=== PATIENT | female | born 2000 | race Caucasian/White ===

== ENCOUNTER 2024-02-14 11:15 | Emergency (ER) | payer BC, SELFPAY ==
[2024-02-14 11:24] VITALS: BP 123/67; PULSE 73; RESP 16; TEMP 36.8; O2SAT 100
--- NOTE | 2024-02-14 11:46 | ED.GENADULT ---
HPI - General Adult General Chief complaint: Upper Respiratory Infection Stated complaint: sore tongue/throat Time Seen by Provider: 02/14/24 11:32 Source: patient and RN notes reviewed Mode of arrival: ambulatory Limitations: no limitations History of Present Illness HPI narrative: Patient presents today complaining of the some painful bumps underneath her tongue and irritation to the lower gumline x2 weeks. Symptoms have been worsening since onset. Today, she developed a sore throat. Currently rates her pain 2/10 and has taken no over the counter treatment prior to arrival. States she wants to make sure she is not showing any signs of salivary gland cancer. Related Data Home Medications Medication Instructions Recorded Confirmed No Home Medications 02/14/24 02/14/24 Allergies Allergy/AdvReac Type Severity Reaction Status Date / Time No Known Allergies Allergy Verified 02/14/24 11:25 Review of Systems Review of Systems: CONSTITUTIONAL: Denies body aches, fever, chills, or sweats. EYES: Denies visual changes, redness, or discharge. ENT: Denies rhinorrhea, congestion, or otalgia.+ sore throat, tongue sores, gum inflammation CARDIOVASCULAR: Denies chest pain, palpitations, or edema. RESPIRATORY: Denies cough or dyspnea. GASTROINTESTINAL: Denies abdominal pain, nausea, vomiting, or diarrhea. GENITOURINARY: Denies dysuria or hematuria. SKIN: Denies rash, itching, or wounds. MUSCULOSKELETAL: Denies back pain, joint pain, or myalgia. NEUROLOGIC: Denies headache, numbness, tingling, or weakness. PSYCH: Denies depression or anxiety. PMFSH Comments At time of signature, I have reviewed and agree with nursing past medical, surgical, social and family history unless otherwise noted. Please see nursing chart for further information. There is no relevant family history pertinent to the presenting complaint Exam Narrative: GENERAL: Well-appearing, well-nourished, and in no acute distress. HEAD: Normocephalic, atraumatic. EYES: EOMI. No redness or drainage. Conjunctivae normal. ENT: Mucous membranes pink and moist. 2 tiny raised bumps to the underside of the right tongue. Non erythematous. Mild irritation to the anterior lower gumline without obvious periapical abscess. Throat normal with small amount of postnasal drainage. No edema, erythema noted. Hard and soft palate normal. Superior portion of the tongue normal. Lips normal. NECK: Normal AROM. CHEST: No respiratory distress. EXTREMITIES: Normal range of motion. No edema. SKIN: Warm, dry, no rash. Capillary refill normal. Normal skin turgor. NEURO: No focal deficits. Alert and oriented x3. Gait steady. PSYCH: Normal affect. No signs of depression or anxiety. Course Course Level of Care: Express Care Visit Vital Signs Vital signs: Vital Signs Temperature 98.2 F 02/14/24 11:24 Pulse Rate 73 02/14/24 11:24 Respiratory Rate 16 02/14/24 11:24 Blood Pressure 123/67 02/14/24 11:24 Pulse Oximetry 100 02/14/24 11:24 Oxygen Delivery Room Air 02/14/24 11:24 Temperature 98.2 F 02/14/24 11:24 Pulse Rate 73 02/14/24 11:24 Respiratory Rate 16 02/14/24 11:24 Blood Pressure 123/67 02/14/24 11:24 Pulse Oximetry 100 02/14/24 11:24 Oxygen Delivery Room Air 02/14/24 11:24 Reviewed Medical Decision Making MDM Narrative Medical decision making narrative: Patient has some mild gingival irritation. States she has been brushing her teeth more firmer than normal. Discussed starting to brush more [employer] to possibly decrease inflammation. States she has not changed her toothbrush or toothpaste recently, although she does switch in between a couple different ones. Reassured her that the areas in question do not appear to be serious. Recommend following up with her PCP or dentist in another week if symptoms are not improving. Discussed that she can take some Tylenol or ibuprofen for pain if needed. Differential Di
== END 2024-02-14 11:52 | disposition home or self-care (01) ==
PROVIDERS: Emergency Provider Nurse Practitioner
DX: K06.8 Other specified disorders of gingiva and edentulous alveolar ridge (principal)
CPT/HCPCS: 99211; G0463